=== PATIENT | female | born 1965 | race Caucasian/White ===

== ENCOUNTER 2019-12-10 06:44 | Inpatient (IN) | payer OTHER ==
[2019-12-10] MEDS ORDERED: HYDROmorphone 0.5 MG/0.5 ML SYRINGE IM STA (07:04)
[2019-12-10] MEDS ORDERED: SODIUM CHLORIDE 0.9% 500 ML 500 ML IV STA (07:04)
[2019-12-10] MEDS ORDERED: ONDANSETRON 4 MG/2 ML VIAL IVP STA (07:04)
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
[2019-12-10 07:14] LABS: Glucose,Whole Blood 111 mg/dL (75-99)
[2019-12-10] MEDS ORDERED: HYDROmorphone 0.5 MG/0.5 ML SYRINGE IVP STA (07:27)
[2019-12-10 07:28] LABS: Basophils % (A) 0 %; Eosinophils # (A) 0.1 k/uL (0-0.7); Eosinophils % (A) 1 %; HCT 43.9 % (34.0-46.0); HGB 14.2 gm/dL (11.4-16.0); Lymphocytes % (A) 10 %; MCH 32.6 pg (25.0-35.0); MCHC 32.4 g/dL (31.0-37.0); MCV 100.7 fL (80.0-100.0); Mean Platelet Volume 7.1; Monocytes # (A) 0.4 k/uL (0-1.0); Monocytes % (A) 4 %; Neutrophils # (A) 8.4 k/uL (1.3-7.7); Neutrophils % (A) 84 %; Platelet Count 248 k/uL (150-450); RBC 4.36 m/uL (3.80-5.40); RDW 12.8 % (11.5-15.5); WBC 9.9 k/uL (3.8-10.6)
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
[2019-12-10 07:36] LABS: INR 0.9 (<1.2); Partial Thromboplastin Time 22.1 sec (22.0-30.0); Prothrombin Time 9.6 sec (9.0-12.0)
[2019-12-10 07:39] LABS: ALT 15 U/L (4-34); AST 34 U/L (14-36); African American GFR (CKD) >90 (>60 ml/min/1.73 sqM); Albumin 5.3 g/dL (3.5-5.0); Alkaline Phosphatase 66 U/L (38-126); Amylase 35 U/L (30-110); Anion Gap 11 mmol/L; Blood Urea Nitrogen 6 mg/dL (7-17); Calcium 9.2 mg/dL (8.4-10.2); Carbon Dioxide 24 mmol/L (22-30); Chloride 100 mmol/L (98-107); Glucose 106 mg/dL (74-99); Non-African American GFR(CKD) >90 (>60 ml/min/1.73 sqM); Sodium 135 mmol/L (137-145); Total Bilirubin 0.6 mg/dL (0.2-1.3); Total Protein 8.2 g/dL (6.3-8.2)
[2019-12-10 07:40] LABS: Creatine Kinase 315 U/L (30-135)
[2019-12-10 07:44] LABS: Alcohol 168 mg/dL
[2019-12-10 07:53] LABS: Creatine Kinase MB 4.4 ng/mL (0.0-2.4); Troponin I <0.012 ng/mL (0.000-0.034)
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
[2019-12-10] MEDS ORDERED: LIDOCAINE 1% INJ 10MG/ML (20 ML MDV) SQ ONE (08:27)
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
[2019-12-10] MEDS ORDERED: HYDROmorphone 1 MG/ML 1 ML SYRINGE IVP STA (08:39)
[2019-12-10] MEDS ORDERED: ONDANSETRON 4 MG/2 ML VIAL IVP PRN (08:39)
[2019-12-10] MEDS ORDERED: NALOXONE 0.4 MG/ML 1 ML VIAL IV PRN (08:39)
[2019-12-10] MEDS ORDERED: HYDROmorphone 0.5 MG/0.5 ML SYRINGE IVP PRN (08:41)
--- NOTE | 2019-12-10 09:24 | XR ---
EXAMINATION TYPE: XR chest 1V DATE OF EXAM: 12/10/2019 HISTORY: Chest tube. REFERENCE: Previous study dated 12/10/2019. FINDINGS: A left pleural drain has been inserted. Residual pneumothorax is not identified. There is s ome atelectatic change present at the left lung base. The right lung is clear. The heart is not enlar ged. I could not exclude a tiny left effusion. IMPRESSION: LEFT-SIDED PNEUMOTHORAX APPEARS TO HAVE RESOLVED.
[2019-12-10] MEDS: HYDROmorphone 1 MG/ML 1 ML SYRINGE IVP PRN ×3 (09:45→21:48)
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
[2019-12-10 11:15] LABS: Glucose,Whole Blood 99 mg/dL (75-99)
[2019-12-10] MEDS: HYDROcodone/APAP 5-325MG 1 EACH TAB PO PRN (11:26)
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
[2019-12-10] MEDS: KETOROLAC 30 MG/ML 1 ML VIAL IVP SCH (18:05)
[2019-12-11] MEDS: KETOROLAC 30 MG/ML 1 ML VIAL IVP SCH ×3 (02:00→12:47)
[2019-12-11 04:59] LABS: Basophils % (A) 0 %; Eosinophils # (A) 0.1 k/uL (0-0.7); Eosinophils % (A) 2 %; HCT 39.2 % (34.0-46.0); HGB 12.3 gm/dL (11.4-16.0); Lymphocytes # (A) 1.1 k/uL (1.0-4.8); Lymphocytes % (A) 24 %; MCH 32.3 pg (25.0-35.0); MCHC 31.3 g/dL (31.0-37.0); MCV 102.9 fL (80.0-100.0); Macrocytosis Slight; Mean Platelet Volume 7.1; Monocytes # (A) 0.4 k/uL (0-1.0); Monocytes % (A) 9 %; Neutrophils % (A) 63 %; Platelet Count 171 k/uL (150-450); RDW 12.7 % (11.5-15.5); WBC 4.7 k/uL (3.8-10.6)
[2019-12-11 05:12] LABS: African American GFR (CKD) >90 (>60 ml/min/1.73 sqM); Anion Gap 5 mmol/L; Calcium 8.9 mg/dL (8.4-10.2); Carbon Dioxide 24 mmol/L (22-30); Chloride 100 mmol/L (98-107); Glucose 87 mg/dL (74-99); Non-African American GFR(CKD) >90 (>60 ml/min/1.73 sqM); Sodium 129 mmol/L (137-145)
[2019-12-11] MEDS: HYDROcodone/APAP 5-325MG 1 EACH TAB PO PRN ×2 (05:12→12:47)
[2019-12-11 05:13] LABS: Blood Urea Nitrogen 8 mg/dL (7-17); Potassium 4.3 mmol/L (3.5-5.1)
--- NOTE | 2019-12-11 06:46 | XR ---
EXAMINATION TYPE: XR chest 1V DATE OF EXAM: 12/11/2019 HISTORY: pneumo. REFERENCE: Previous study dated 12/10/2019. FINDINGS: A left pleural drain remains in place. A definite pneumothorax is not seen at this time. Th ere has developed platelike atelectasis at the left lung base. Right lung is clear. The heart is not enlarged. No definite pleural fluid is seen. IMPRESSION: 1. NO DEFINITE PNEUMOTHORAX AT THIS TIME. 2. PLATELIKE ATELECTASIS, LEFT LUNG BASE.
[2019-12-11 07:10] VITALS: TEMP 98.5
[2019-12-11] MEDS ORDERED: PANTOPRAZOLE 40 MG TABLET PO SCH (07:30)
--- NOTE | 2019-12-11 11:11 | P.PN ---
Progress Note - Text Progress Note Date: 12/11/19 The patient feels well. Her pneumothorax is improved. On exam vital signs are stable. Chest is clear abdomen soft. Her patiently discharged home today. She'll follow-up with Dr. Marlow for removal of thoravent.
--- NOTE | 2019-12-11 12:15 | P.PN ---
Subjective Progress Note Date: 12/11/19 On 12/11/2019, the patient is doing well and the patient has no specific complaints. The Thoravent is attached to her pleural VAC and there is no evidence of any air leak. The follow-up chest x-ray from today shows expansion of the left lung without any major issues. No evidence of any pneumothorax. T he patient is not having any respiratory difficulty speech is using incentive spirometer. Chest wall pain is under good control. Blood work essentially within normal limits in terms of her CBC. Sodium is slightly low at 129. No signs of any delirium tremens. Hemodynamics is stable. No hemoptysis. No altered mentation. No other complaints otherwise. The patient is emanating the patient has no complaints. Objective - Vital Signs Vital signs: Vital Signs Temp 98.5 F 12/11/19 04:00 Pulse 67 12/11/19 10:00 Resp 12 12/11/19 10:00 BP 111/81 12/11/19 09:00 Pulse Ox 97 12/11/19 10:00 Intake & Output 12/10/19 12/11/19 12/11/19 18:59 06:59 18:59 Intake Total 1080 1250 360 Output Total 0 2000 0 Balance 1080 -750 360 Weight 56.699 kg 60.7 kg Intake: Oral 1080 1250 360 Output: Urine 0 2000 0 Other: Voiding Method Bedside Commode Bedside Commode # Voids 1 1 - Exam The patient appeared well nourished and normally developed. Vital signs as documented. Head exam is unremarkable. No scleral icterus or corneal arcus note d. Neck is without jugular venous distension, thyromegaly, or carotid bruits. Carotid upstrokes are brisk bilaterally. Lungs are clear to auscultation and percussion. The patient has symmetrical breath sounds bilaterally and the patient has a Thoravent over the left anterior chest area which is well- positioned and well-dressed. Cardiac exam reveals the PMI to be normally sized and situated. Rhythm is regular. First and second heart sounds normal. No murmurs, rubs or gallops. Abdominal exam reveals normal bowel sounds, no masses, no organomegaly and no aortic enlargement. Extremities are nonedematous and both femoral and pedal pulses are normal. - Labs CBC & Chem 7: 12/11/19 04:44 07/19/20 04:44 Labs: Abnormal Lab Results - Last 24 Hours (Table) 12/11/19 12/11/19 Range/Units 04:44 04:44 MCV 102.9 H (80.0-100.0) fL Sodium 129 L (137-145) mmol/L Creatinine 0.39 L (0.52-1.04) mg/dL Assessment and Plan Plan: 1 traumatic left-sided pneumothorax post Thoravent insertion with excellent reexpansion of the left lung. The patient continues to have the Thoravent in place. Repeat chest x-ray from today shows no evidence of any pneumothorax. No evidence of any air leak and the Thoravent was taken off the infection. 2 nondisplaced rib fractures fifth and sixth on the left 3 chest wall pain secondary to above 4 fall 5 smoker Plan [place] for pain control Provide the patient incentive spirometer I do not object for discharge today and the patient can go home along with the Thoravent. She can see me tomorrow or Thursday in the office for repeat chest x- ray in the office and possibly removal of the Thoravent tube.. His hematocrit is stable. I think she should be able to get discharged. I discussed this with the surgeon.
[2019-12-11 14:01] VITALS: BP 101/72; PULSE 75; RESP 28
== END 2019-12-11 13:00 | disposition home or self-care (01) | DRG 200 ==
LOC: EC 06:44 → 4SSUR 08:39 → 2SICU 10:21
PROVIDERS: ADMIT Surgery; ATTEND Surgery
PROC: 0W9B30Z Drainage of Left Pleural Cavity with Drainage Device, Percutaneous Approach (ICD-10-PCS; principal; 2019-12-10)
DX: S27.0XXA Traumatic pneumothorax, initial encounter (principal); S22.42XA Multiple fractures of ribs, left side, initial encounter for closed fracture; F17.200 Nicotine dependence, unspecified, uncomplicated; R10.9 Unspecified abdominal pain; F10.129 Alcohol abuse with intoxication, unspecified; Z20.828 Contact with and (suspected) exposure to other viral communicable diseases; R07.89 Other chest pain; M54.2 Cervicalgia; Z98.51 Tubal ligation status; Z79.899 Other long term (current) drug therapy; Y90.6 Blood alcohol level of 120-199 mg/100 ml; V86.69XA Passenger of other special all-terrain or other off-road motor vehicle injured in nontraffic accident, initial encounter
CPT/HCPCS: 32551; 36415; 70450; 71045; 71260; 72125; 72170; 74177; 80048; 80053; 80320; 82150; 82550; 82553; 83605; 83690; 84484; 85025; 85610; 85730; 86850; 86900; 86901; 93005; 96361; 96374; 96375; 96376; 99285